=== PATIENT | female | born 1990 | race Hispanic/Latino ===

== ENCOUNTER 2025-04-14 18:54 | Emergency (ER) | payer SELFPAY ==
[~2025-04-14] VITALS: Ht 160 cm; Wt 81.6 kg
--- NOTE | 2025-04-14 18:59 | ERN ---
ED Note History of Present Illness Stated Complaint: ABD PAIN Chief Complaint: Abdominal Pain Time Seen by MD: 18:56 Dictation: PATIENT IS HERE WITH COMPLAINTS OF LEFT UPPER AND LOWER ABDOMINAL PAIN TENDERNESS WITH NAUSEA VOMITING FOR THREE DAYS. NO FEVER NO CHILLS NO CHANGE IN URINATION. SHE DENIES . NO PRIMARY CARE DOCTOR Allergies: Coded Allergies: No Known Drug Allergies (Unverified Allergy, Unknown, 04/14/25) Past Medical History RN Note Reviewed/Agreed w/PFSH: Yes Review of System Dictation CONSTITUTIONAL: NEGATIVE EXCEPT FOR HPI HEAD/FACE: NEGATIVE EXCEPT FOR HPI EENT: NEGATIVE EXCEPT FOR HPI RESPIRATORY: NEGATIVE EXCEPT FOR HPI GASTROINTESTINAL/ABDOMINAL: NEGATIVE EXCEPT FOR HPI LEFT UPPER AND LOWER ABDOMINAL PAIN WITH NAUSEA VOMITING THREE DAYS GENITOURINARY: NEGATIVE EXCEPT FOR HPI MUSCULOSKELETAL: NEGATIVE EXCEPT FOR HPI INTEGUMENTARY: NEGATIVE EXCEPT FOR HPI NEUROLOGICAL/PSYCH: NEGATIVE EXCEPT FOR HPI HEMATOLOGIC/LYMPHATIC: NEGATIVE EXCEPT FOR HPI ALL SYSTEMS NEGATIVE, EXCEPT NOTED ABOVE. 13 POINT REVIEW OF SYSTEMS ASSESSED AND ALL NEGATIVE EXCEPT FOR ABOVE. Initial Vital Sign VS Vital Signs Date Time Temp Pulse Resp B/P (MAP) Pulse Ox O2 Delivery O2 Flow Rate FiO2 04/14/25 18:56 99.0 90 16 151/100 100 Room Air 0 04/14/25 19:34 21 Physical Exam Dictation VITAL SIGNS REVIEWED GENERAL APPEARANCE: ALERT, ORIENTED X 3, MODERATE ACUTE DISTRESS, WELL DEVELOPED, NOURISHED. OBESE HEAD AND FACE: NON-TRAUMATIC. EYES: PERRL, PINK CONJUNCTIVAS, EYELID NO TRAUMA, ANTERIOR CHAMBER WITH ARCUS SENILIS. EARS: PINNAS INTACT AND NO SIGNS OF TRAUMA OR ERYTHEMA EAR CANALS CLEAR AND NO DISCHARGE TM NO ERYTHEMA NOSE: NO DISCHARGE, NO BLEEDING. OROPHARYNX: MOUTH NORMAL, TONGUE PINK, PHARYNX CLEAR,NO ERYTHEMA, TONSILS NO EXUDATES, NO ABSCESSES NOTED, MUCOUS MEMBRANE MOIST NECK: SUPPLE, NON-TENDER, NO THYROMEGALY, NO MASSES, NO JVD, NO BRUITS BREAST:DEFERRED CHEST:NO TENDERNESS, NO CREPITUS, NO PARADOXICAL MOVEMENT, NO RETRACTIONS LUNGS:CLEAR, WELL-VENTILATED, SYMMETRIC, NO RALES, NO WHEEZING, NO RHONCHI, NO STRIDOR, GOOD BREATH SOUNDS BILATERALLY HEART: REGULAR RATE, REGULAR RHYTHM, NO MURMUR, NO GALLOPS VASCULAR: NO PERIPHERAL EDEMA, ABDOMEN: SOFT, POSITIVE BOWEL SOUNDS, MODERATE LEFT UPPER AND LOWER QUADRANT PAIN TENDERNESS WITH PALPATION. RECTAL: DEFERRED GENITAL: DEFERRED NEUROLOGICAL: NORMAL SPEECH, MOTOR FUNCTION INTACT, SENSORY FUNCTION INTACT MUSCULOSKELETAL: NECK NONTENDER, FULL RANGE OF MOTION, BACK NONTENDER, FULL RANGE OF MOTION, EXTREMITIES: NONTENDER, FULL RANGE OF MOTION SKIN: COLOR PINK, DRY, NO TURGOR, NO RASH, NO LACERATIONS, NO ABRASIONS, NO CONTUSIONS. LYMPHATIC: DEFERRED Results (Laboratory/Radiology) Laboratory/Radiology Laboratory Tests Test 04/14/25 19:11 04/14/25 21:44 White Blood Count 15.5 K/uL (4.8-10.8) H Red Blood Count 4.86 MIL/uL (4.00-5.50) Hemoglobin 13.7 g/dL (12.0-16.0) Hematocrit 41.0 % (36-48) Mean Corpuscular Volume 84.4 fL (79-99) Mean Corpuscular Hemoglobin 28.2 pg (27.0-33.0) Mean Corpuscular Hemoglobin Concent 33.4 g/dL (32.0-36.0) Red Cell Distribution Width 13.4 % (11.0-15.5) Platelet Count 467 K/uL (130-400) H Mean Platelet Volume 8.9 fL (7.5-10.5) Immature Granulocyte % (Auto) 0.3 % (0-1) Neutrophils (%) (Auto) 69.9 % (40.0-77.0) Lymphocytes (%) (Auto) 23.4 % (21.0-51.0) Monocytes (%) (Auto) 5.0 % (3.0-13.0) Eosinophils (%) (Auto) 1.2 % (0.0-8.0) Basophils (%) (Auto) 0.2 % (0.0-5.0) Neutrophils # (Auto) 10.9 K/uL (1.8-7.7) H Lymphocytes # (Auto) 3.6 K/uL (1.0-4.8) Monocytes # (Auto) 0.8 K/uL (0.1-1.0) Eosinophils # (Auto) 0.19 K/uL (0.00-0.70) Basophils # (Auto) 0.03 K/uL (0.00-0.20) Absolute Immature Granulocyte (auto 0.05 K/uL (0-1) Nucleated Red Blood Cells 0.0 % (0.0-0.19) Sodium Level 139 mmol/L (136-145) Potassium Level 3.6 mmol/L (3.5-5.1) Chloride Level 103 mmol/L (101-111) Carbon Dioxide Level 24 mmol/L (21-32) Blood Urea Nitrogen 10 mg/dL (7-18) Creatinine 0.6 mg/dL (0.5-1.0) Glomerular Filtration Rate Calc 118 mL/min (>90) Random Glucose 117 mg/dL (70-105) H Total Calcium 8.9 mg/dL (8.5-10.1) Lipase 32 U/L (16-77) Human Chorionic Gonadotropin, Quant 0 mIU/mL (0-5) Urine Color LIGHT-YELLOW (YELLOW) Urine Appearance CLEAR (CLEAR) Urine pH 6.0 (5.0-8.0) Urine Specific [place] 1.050 (1.001-1.031) Urine Protein NEGATIVE mg/dL (NEGATIVE) Urine Glucose (UA) NEGATIVE mg/dL (NEGATIVE) Urine Ketones NEGATIVE mg/dL (NEGATIVE) Urine Occult Blood NEGATIVE (NEGATIVE) Urine Nitrate NEGATIVE (NEGATIVE) Urine Bilirubin NEGATIVE mg/dL (NEGATIVE) Urine Urobilinogen 0.2 mg/dL (0.2-1.0) Urine Leukocyte Esterase NEGATIVE Heather/uL Labs Reviewed?: Yes ED Course ED Course Orders Procedure Category Date Status Time Cbc With Differential LAB 04/14/25 Complete 18:57 Urinalysis Profile LAB 04/14/25 Complete 18:57 0.9%Nacl 1000ml (Ns PHA 04/14/25 Complete 1000ml) 19:00 Morphine 2mg Syg PHA 04/14/25 Complete (Morphine 2mg Syg) 19:00 Ondansetron 4mg Inj PHA 04/14/25 Complete (Zofran 4mg Inj) 19:00 Lipase LAB 04/14/25 Complete 18:57 Basic Metabolic Panel LAB 04/14/25 Complete 18:57 Morphine 4mg Syg PHA 04/14/25 Complete (Morphine 4mg Syg) 19:30 Hcg,Quantitative LAB 04/14/25 Complete 19:21 Us Pelvic Non-Ob US 04/14/25 Resulted Limited 19:56 Ct Abdomen/Pelvis CT 04/14/25 Resulted W/Contrast 20:09 Iohexol (Omnipaque) PHA 04/14/25 Complete 20:50 Ceftriaxone 1g Vial PHA 04/14/25 In Process (Rocephine 1g Inj) 23:30 Current Medications Medications (Trade) Dose Ordered Sig/Tom Route PRN Reason Start Time Stop Time Status Last Admin Dose Admin Ceftriaxone Sodium (ROCEphine 1G INJ) 1 gm ONCE ONCE IVPB 04/14/25 23:30 04/14/25 23:31 Iohexol (Omnipaque) 75 ml STK-MED ONCE IV 04/14/25 20:50 04/14/25 20:50 DC Morphine Sulfate (morPHINE 2MG SYG) 2 mg ONCE ONCE IVP 04/14/25 19:00 04/14/25 19:01 DC Morphine Sulfate (morPHINE 4MG SYG) 2 mg ONCE ONCE IVP 04/14/25 19:30 04/14/25 19:31 DC 04/14/25 19:44 Ondansetron HCl (zoFRAN 4MG INJ) 4 mg ONCE ONCE IVP 04/14/25 19:00 04/14/25 19:01 DC 04/14/25 19:44 Sodium Chloride 1,000 ml @ 0 mls/hr ONCE ONCE IV 04/14/25 19:00 04/14/25 19:01 DC 04/14/25 19:45 Vital Signs Date Time Temp Pulse Resp B/P (MAP) Pulse Ox O2 Delivery O2 Flow Rate FiO2 04/14/25 20:35 98.1 80 17 122/75 99 Room Air* 0 21 04/14/25 19:34 98.1 87 19 124/79 98 Room Air* 0 21 04/14/25 18:56 99.0 90 16 151/100 100 Room Air 0 Medical Decision Making MDM MDM: Differential diagnosis: Diverticulitis, ovarian cyst, viral gastroenteritis There are no social concerns with this patient. Prescription drug management Prescriptions will include: Zofran and Augmentin Medical management and examination interpretation discussions were had by me with other qualified healthcare professionals as indicated for the patient's care. DX & DISP Disposition: Discharge Departure Impression: Primary Impression: Acute diverticulitis Condition: Stable Scripts Amoxicillin/Potassium Clav (Amox Tr-K Clv 875-125 mg Tab) 875 Mg-125 Mg Tablet 1 EACH PO BID for 7 Days, #14 TAB 0 Refills Prov: GARETH KELSEY PAC 04/14/25 Ondansetron (Ondansetron Odt) 4 Mg Tab.rapdis 4 MG PO BID for 7 Days, #14 TAB Prov: LOWKAYLIE PAC 04/14/25 Additional Instructions: Recibi tratamiento por diverticulitis sin complicaciones, que es la inflamacin de los pequeos sacos (divertculos) del colon. La mayora de los casos mejoran con reposo, lquidos y antibiticos. Comience con lquidos sharda (caldo, gelatina, agua, bebidas electrolticas) annabella 1 o 2 aguillon hasta que el dolor y las nuseas mejoren. Aumente gradualmente a michelle dieta baja en fibra (arroz dickens, huevos, yogur, verduras cocidas, protenas magras). Tras michelle recuperacin completa, cambie a michelle dieta aniya en fibra para prevenir futuros episodios. Syeda abundantes lquidos y syeda al menos ocho vasos de agua al da. Descanse hasta que el dolor disminuya. [place] los antibiticos segn lo prescrito. Si presenta fiebre, empeoramiento del dolor abdominal, sangrado rectal o vmitos persistentes, acuda a urgencias para michelle evaluacin adicional. Time of Disposition: 23:29 I have reviewed the case, and I agree with, Diagnosis and Plan I performed the substantive portion of the visit. I have reviewed and personally made and approve the management plan that is documented in the note by myself or the FRANCIS. I acknowledge for responsibility for the patient's management plan. FARZAD MUSTAFA [facility] Apr 14, 2025 18:59 GARETH KELSEY PAC Apr 14, 2025 23:29
[2025-04-14 19:16] LABS: IMMATURE GRANULOCYTE ABSOLUTE 0.05 K/uL (0-1); NUCLEATED RED BLOOD CELLS 0.0 % (0.0-0.19); PLATELET COUNT (AUTO) 467 K/uL (130-400); RED BLOOD CELL COUNT(AUTO) 4.86 MIL/uL (4.00-5.50); RED CELL DISTRIBUTION WIDTH 13.4 % (11.0-15.5); WHITE BLOOD COUNT (AUTO) 15.5 K/uL (4.8-10.8)
[2025-04-14 19:28] LABS: CREATININE 0.6 mg/dL (0.5-1.0); GLOMERULAR FILTR. RATE CALC 118.0 mL/min (>90); GLUCOSE,RANDOM 117.0 mg/dL (70-105); SODIUM SERUM 139.0 mmol/L (136-145); UREA NITROGEN, BLOOD 10.0 mg/dL (7-18)
[2025-04-14] MEDS: 0.9%NACL 1000ML 1,000 ML IV ONE (19:45)
[2025-04-14] MEDS ORDERED: IOHEXOL-350 75 ML VIAL IV ONE (20:50)
--- NOTE | 2025-04-14 21:10 | NUR ---
PT TO CT AT THIS TIME
--- NOTE | 2025-04-14 21:16 | HMCIMG ---
EXAM: US Pelvis, Complete Transvaginal and Transabdominal. CLINICAL HISTORY: Left lower abdominal and pelvic pain. TECHNIQUE: Transvaginal and transabdominal pelvic ultrasound (complete) with image documentation. COMPARISON: None provided. FINDINGS: ENDOMETRIUM: Normal thickness. Measures 2.6 mm. UTERUS/CERVIX: The uterus appears mildly bulky. The uterus measures 10.7 x 4.3 x 5.8 cm. A fundal fibroid measuring 2.4 x 1.5 x 2.2 cm is evident. No other mass evident. RIGHT OVARY: Measures 2.3 x 1.6 x 2.8 cm. Normal Doppler flow. No abnormal mass. LEFT OVARY: Measures 2.5 x 2 x 2.2 cm. Normal Doppler flow. No abnormal mass. FREE FLUID: No free fluid. IMPRESSION: 1. No acute pelvic pathology. 2. Mildly bulky uterus with a 2.4 cm partly subserosal fundal fibroid. /[place]
[2025-04-14 22:11] LABS: ADD UA MICROSCOPIC NO; APPEARANCE,URINE CLEAR (CLEAR); GLUCOSE, URINE (UA) NEGATIVE (NEGATIVE); LEUKOCYTE ESTERASE ,URINE NEGATIVE Leu/uL (NEGATIVE); NITRATE,URINE NEGATIVE (NEGATIVE); OCCULT BLOOD,URINE NEGATIVE (NEGATIVE)
--- NOTE | 2025-04-14 22:56 | HMCIMG ---
EXAM: CT Abdomen and Pelvis with IV contrast. CLINICAL HISTORY: Lower abdominal pain. TECHNIQUE: Axial computed tomography images of the abdomen and pelvis with intravenous contrast. COMPARISON: Ultrasound pelvis on the same day. FINDINGS: LUNG BASES: The lung bases appear clear. No pleural effusions are seen. LIVER: Measures 17.7 cm in craniocaudal span. Enlarged with mild fatty infiltration. No focal lesions. GALLBLADDER AND BILE DUCTS: The gallbladder appears within normal limits. No radioopaque gallstones are seen. No biliary ductal dilatation is evident. PANCREAS: Unremarkable. SPLEEN: Unremarkable. ADRENAL GLANDS: Unremarkable. KIDNEYS, URETERS, AND BLADDER: The kidneys appear within normal limits. There is no hydronephrosis or hydroureter. No urinary calculi are seen. STOMACH AND BOWEL: Uncomplicated colonic diverticula. Fat stranding around one of the diverticula in the descending colon (series 2, image 61). No evidence of free intraperitoneal air or collection. Unremarkable appearance of the stomach and bowel. No evidence of bowel obstruction. No evidence suggesting enteritis or colitis. APPENDIX: No evidence of acute appendicitis on CT examination. PERITONEUM: No free fluid. No free air. LYMPH NODES: No lymphadenopathy is evident. REPRODUCTIVE: A mildly bulky uterus with a subserosal uterine fibroid along the anterior myometrium measuring 2.3 x 1.9 cm. Otherwise, grossly unremarkable. VASCULATURE: No evidence of abdominal aortic aneurysm. BONES: No aggressive appearing osseous lesion. No acute osseous pathology is evident. IMPRESSION: 1. Descending colonic diverticulitis without perforation or adjacent collection. 2. Mild hepatomegaly and mild fatty liver. 3. 2.3 x 1.9 cm subserosal uterine fibroid. /[place]
[2025-04-14] MEDS ORDERED: ONDA-243 PO (23:28)
[2025-04-14] MEDS ORDERED: AMOX1TAB16 PO (23:28)
[2025-04-14 23:40] VITALS: BP 124/71; PULSE 81; RESP 16; TEMP 98.4; O2SAT 97
== END 2025-04-14 23:53 | disposition home or self-care (01) ==
LOC: EDH 18:54
DX: K57.32 Diverticulitis of large intestine without perforation or abscess without bleeding (principal)
CPT/HCPCS: 99285; 74177; 96365; 76857; 96361; 96375; 80048; 84702; 83690; 85025; 81003; 36415; J2270 ×2; J7030; J0696; J2405; Q9967